=== PATIENT | male | born 1960 | race African-American/Black ===

== ENCOUNTER 2023-12-30 09:32 | Day surgery (SDC) | payer OTHER ==
[~2023-12-30] VITALS: Ht 180.3 cm; Wt 104.3 kg
[2023-12-30] MEDS ORDERED: fentaNYL citrate 0.05 MG/ML VIAL ONE (11:58)
[2023-12-30] MEDS ORDERED: LIDOCAINE 2% 100 MG/5 ML UJET TP ONE ×2 (11:58→13:35)
[2023-12-30] MEDS: fentaNYL citrate 0.05 MG/ML VIAL IVP ONE (12:24)
== END 2023-12-30 13:25 | disposition home or self-care (01) ==
LOC: MOR 09:32 → MMU 09:44 → MOR 13:25
PROVIDERS: ATTEND Internal Medicine Gastroenterology
DX: Z12.11 Encounter for screening for malignant neoplasm of colon (principal); K57.30 Diverticulosis of large intestine without perforation or abscess without bleeding; K64.8 Other hemorrhoids; Z86.010 Personal history of colon polyps; I10 Essential (primary) hypertension; E11.9 Type 2 diabetes mellitus without complications; Z79.82 Long term (current) use of aspirin; Z79.899 Other long term (current) drug therapy
CPT/HCPCS: 45378; 82948; J3010